=== PATIENT | female | born 1990 | race African-American/Black ===

== ENCOUNTER 2017-10-27 14:48 | Emergency (ER) | payer OTHER ==
[~2017-10-27] VITALS: Ht 160 cm; Wt 58.6 kg
[2017-10-27 19:28] LABS: APPEARANCE CLEAR ((CLEAR)); BILIRUBIN NEGATIVE; BLOOD NEGATIVE; COLOR YELLOW ((YELLOW)); GLUCOSE (STRIP) NEGATIVE; KETONES NEGATIVE; LEUKOCYTES TRACE; NITRITE NEGATIVE; PROTEIN (STRIP) NEGATIVE; SPECIFIC GRAVITY 1.014 (1.000-1.030); UROBILINOGEN 0.2 MG/DL (0.2-1.0)
[2017-10-27 19:46] LABS: BACTERIA NONE SEEN /HPF; EPITHELIAL CELLS RARE /HPF; MUCUS TRACE /LPF; RED BLOOD CELLS 0-5 /HPF (0-5)
[2017-10-27] MEDS ORDERED: VALIUM5 MG PO (20:17)
[2017-10-27] MEDS ORDERED: KEFLEX500 MG PO (20:17)
[2017-10-27] MEDS ORDERED: PREDNISONE50 MG PO (20:17)
[2017-10-27] MEDS ORDERED: NORCO 5/3251 TABLET PO (20:17)
[2017-10-27 20:29] VITALS: BP 96/62
== END 2017-10-27 20:30 | disposition home or self-care (01) ==
LOC: EME 14:48
PROVIDERS: Physician Assistant
DX: M54.30 Sciatica, unspecified side (principal); N39.0 Urinary tract infection, site not specified
CPT/HCPCS: 76856; 81003; 84702; 87086; 99281; 99284; J1885; J7512